=== PATIENT | female | born 1965 | race Caucasian/White ===

== ENCOUNTER 2020-07-21 12:26 | Emergency (ER) | payer MEDICAID ==
[~2020-07-21] VITALS: Ht 170.2 cm; Wt 67.1 kg
[2020-07-21 12:31] VITALS: BP 170/99
[2020-07-21] MEDS ORDERED: KETOROLAC 30 MG/ML VIAL IM ONE (13:20)
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
[2020-07-21] MEDS ORDERED: LIDOCAINE MPF 1% 10 MG/ML VIAL INJ ONE (13:55)
[2020-07-21 14:42] LABS: BASOPHILS # (AUTO) 0.2 K/uL (0.00-0.22); BASOPHILS % (AUTO) 2.5 % (0.0-2.0); EOSINOPHILS # (AUTO) 0.2 K/uL (0-0.4); EOSINOPHILS % (AUTO) 2.5 % (0.0-4.0); HEMATOCRIT 44.4 % (36-48); HEMOGLOBIN 14.8 g/dL (12.0-16.0); LYMPHOCYTES # (AUTO) 2.7 K/uL (2.5-16.5); LYMPHOCYTES % (AUTO) 32.3 % (20.5-51.1); MEAN CORPUSCULAR HEMOGLOBIN 29 pg (27-31); MEAN CORPUSCULAR HGB CONC 33 g/dL (33-37); MONOCYTES # (AUTO) 0.5 K/uL (0.8-1.0); MONOCYTES % (AUTO) 6.4 % (1.7-9.3); NEUTROPHILS # (AUTO) 4.7 K/uL (1.8-7.7); NEUTROPHILS % (AUTO) 56.3 % (42.2-75.2); PLATELET COUNT (AUTO) 393 K/uL (140-450); RED BLOOD CELL COUNT(AUTO) 5.04 MIL/uL (4.20-5.40); RED CELL DISTRIBUTION WIDTH 15.1 % (11.6-13.7); WHITE BLOOD COUNT (AUTO) 8.4 K/uL (4.8-10.8)
[2020-07-21] MEDS ORDERED: BACITRACIN OINT 500 UNITS/GM PKT TP ONE ×2 (15:19→15:20)
[2020-07-21] MEDS ORDERED: cefTRIAXone 1,000 MG in LIDOCAINE MPF 1% 2.1 ML IM ONE (15:20)
[2020-07-21] MEDS ORDERED: IBUP-2213 PO (15:21)
[2020-07-21] MEDS ORDERED: CLIN300C50 PO (15:21)
[2020-07-21 15:24] LABS: ANION GAP 13.7 (8-16); CREATININE 0.9 mg/dL (0.6-1.3); POTASSIUM 3.7 mmol/L (3.5-5.1)
--- NOTE | 2020-07-21 15:27 | NUR ---
APPLIED FINGER SPLINT/DRESSING TO RIGHT 2ND DIGIT WITHOUT ANY ISSUES
[2020-07-21] MEDS ORDERED: cefTRIAXone 1,000 MG VIAL ONE (15:31)
[2020-07-21] MEDS ORDERED: LIDOCAINE MPF 1% 5 ML ONE (15:32)
[2020-07-21 15:38] VITALS: BP 170/99
--- NOTE | 2020-07-21 15:38 | NUR ---
Patient discharged with v/s stable. Written and verbal after care instructions given and explained. Patient alert, oriented and verbalized understanding of instructions. Ambulatory with steady gait. All questions addressed prior to discharge. ID band removed. Patient advised to follow up with PMD. Rx of CLINDAMYCIN, MOTRIN given. Patient educated on indication of medication including possible reaction and side effects. Opportunity to ask questions provided and answered.
== END 2020-07-21 15:38 | disposition home or self-care (01) ==
LOC: MED 12:26
DX: L03.011 Cellulitis of right finger (principal); Z79.899 Other long term (current) drug therapy
CPT/HCPCS: 29130; 36415; 73140; 80048; 85025; 85651; 86140; 87040; 96372; 99284; J0696; J1885; J2001

== ENCOUNTER 2020-07-25 05:13 | Emergency (ER) | payer MEDICAID ==
[~2020-07-25] VITALS: Ht 172.7 cm; Wt 61.2 kg
[~2020-07-25 05:13] MED LIST: CLIN300C50 PO; IBUP-2213 PO
[2020-07-25 05:21] VITALS: BP 120/80
--- NOTE | 2020-07-25 05:21 | NUR ---
TO BED AMBULATORY
--- NOTE | 2020-07-25 05:30 | NUR ---
54 Y/O FEMALE CAME TO THE ED C/O RT HAND PAIN OF 10/10 THAT RADIATES TO ARM AND RT SHOULDER; PT STATES THAT "SHE HIT HER HAND AGAIN IN THE CABINET". DIMA PMH: HTN, PRE-DM, BRONCHITIS
[2020-07-25] MEDS ORDERED: LIDOCAINE MPF 1% 10 MG/ML VIAL INJ ONE (05:40)
[2020-07-25] MEDS ORDERED: KETOROLAC 30 MG/ML VIAL IVP ONE (06:10)
[2020-07-25] MEDS ORDERED: VANCOMYCIN 1,000 MG in DEXTROSE 5% 250 ML IV ONE (06:10)
[2020-07-25] MEDS ORDERED: VANCOMYCIN 1,000 MG VIAL ONE (06:11)
[2020-07-25] MEDS ORDERED: NAPR-54 PO (07:00)
[2020-07-25] MEDS ORDERED: CEPH250C16 PO (07:00)
--- NOTE | 2020-07-25 07:11 | NUR ---
GIVEN REPORT TO HUAN RG FOR CONTINUITY OF CARE
--- NOTE | 2020-07-25 07:21 | NUR ---
Pt report received from Aya RN. Transfer of care at this time.
[2020-07-25 07:48] VITALS: BP 120/80
--- NOTE | 2020-07-25 07:48 | NUR ---
Patient discharged with v/s stable. Written and verbal after care instructions given and explained. Patient alert, oriented and verbalized understanding of instructions. Ambulatory with steady gait. All questions addressed prior to discharge. ID band removed. Patient advised to follow up with PMD. Rx of CEPHALEXIN, NAPROXEN given. Patient educated on indication of medication including possible reaction and side effects. Opportunity to ask questions provided and answered.
--- NOTE | 2020-07-28 17:09 | NUR ---
TALKED TO YENIFER FRIEDMAN, MADE AWARE OF THE RESULT OF HER XR OF HER RIGHT FINGERS, MADE AWARE MD WANTS HER HAND TO HAVE SPLINT, PER YENIFER SHE IS COMING IN AN HOUR.
== END 2020-07-25 07:48 | disposition home or self-care (01) ==
LOC: MED 05:13
DX: S61.309A Unspecified open wound of unspecified finger with damage to nail, initial encounter (principal); L02.512 Cutaneous abscess of left hand; F17.210 Nicotine dependence, cigarettes, uncomplicated; R73.03 Prediabetes; Z79.899 Other long term (current) drug therapy; Z71.6 Tobacco abuse counseling
CPT/HCPCS: 11730; 36415; 73140; 87040; 96365; 96375; 99284; J1885; J2001; J3370; J7060

== ENCOUNTER 2021-07-03 14:49 | Emergency (ER) | payer MEDICAID ==
[~2021-07-03] VITALS: Ht 172.7 cm; Wt 62.6 kg
[~2021-07-03 14:49] MED LIST changes: +CEPH250C16 PO; +NAPR-54 PO
[2021-07-03 15:10] VITALS: BP 104/71
[2021-07-03] MEDS ORDERED: NACL 0.9% 1,000 ML IV ONE (15:30)
[2021-07-03] MEDS ORDERED: KETOROLAC 15 MG/ML VIAL IVP ONE (15:35)
[2021-07-03] MEDS ORDERED: ONDANSETRON 4 MG/2 ML VIAL IVP ONE (15:35)
[2021-07-03 16:02] LABS: BASOPHILS # (AUTO) 0.1 K/uL (0.00-0.22); BASOPHILS % (AUTO) 0.5 % (0.0-2.0); EOSINOPHILS % (AUTO) 0.3 % (0.0-4.0); HEMATOCRIT 42.2 % (36-48); HEMOGLOBIN 14.2 g/dL (12.0-16.0); LYMPHOCYTES % (AUTO) 12.6 % (20.5-51.1); MEAN CORPUSCULAR HEMOGLOBIN 29 pg (27-31); MEAN CORPUSCULAR HGB CONC 34 g/dL (33-37); MEAN CORPUSCULAR VOLUME 87.1 fL (80-94); MONOCYTES # (AUTO) 1.7 K/uL (0.8-1.0); NEUTROPHILS # (AUTO) 11.9 K/uL (1.8-7.7); NEUTROPHILS % (AUTO) 75.6 % (42.2-75.2); PLATELET COUNT (AUTO) 345 K/uL (140-450); RED BLOOD CELL COUNT(AUTO) 4.85 MIL/uL (4.20-5.40); RED CELL DISTRIBUTION WIDTH 15.7 % (11.6-13.7); WHITE BLOOD COUNT (AUTO) 15.7 K/uL (4.8-10.8)
[2021-07-03 16:20] LABS: ALBUMIN 3.4 g/dL (3.4-5.0); ANION GAP 19.2 (8-16); CARBON DIOXIDE 22.4 mmol/L (21-32); CREATININE 1.1 mg/dL (0.6-1.3); POTASSIUM 3.6 mmol/L (3.5-5.1)
--- NOTE | 2021-07-03 16:24 | NUR ---
55 y/o female with c/o generalized malaise. Patient states "symptoms have been going on for a couple of weeks." Patient denies being around anyone who is sick or eating anything new. Medical History: Partial Skull Removal NKDA
--- NOTE | 2021-07-03 16:50 | NUR ---
55/F PRESENTS TO ED WITH C/O BILATERAL NECK AND SHOULDER PAIN, WITH DIZZINESS AND NAUSEA X1 WEEK. PATIENT DENIES RECENT INJURY OR TRAUMA, STATES SHE IS GETTING OVER AN ILLNESS IN THE PAST WEEK AND HAS NOT BEEN EATING OR DRINKING USUAL. PATIENT REPORTS TAKING ALEVE FOR PAIN WITH NO RELIEF. PATIENT DENIES FEVER, CHILLS, HEADACHE, CP, SOB OR OTHER RECENT SICK CONTACTS.
[2021-07-03] MEDS ORDERED: ONDA-188 SL (17:00)
[2021-07-03] MEDS ORDERED: IBUP-2213 PO (17:00)
--- NOTE | 2021-07-03 17:17 | NUR ---
Dr. Peres made aware of patient complaining of pain. Dr. Peres said patient is clear to go home.
--- NOTE | 2021-07-03 17:18 | NUR ---
Patient discharged with v/s stable. Written and verbal after care instructions given. Patient alert, oriented and verbalized understanding of instructions. Ambulatory with steady gait. All questions addressed prior to discharge. ID band removed. Patient advised to follow up with PMD. Rx of Ibuprofen and Zofran given. Opportunity to ask questions provided and answered.
[2021-07-03 17:19] VITALS: BP 92/53
--- NOTE | 2021-07-03 17:20 | NUR ---
The patient's care was reviewed and supervised by Flor Villalobos RN.
== END 2021-07-03 17:19 | disposition home or self-care (01) ==
LOC: MED 14:49
DX: E86.0 Dehydration (principal); B34.9 Viral infection, unspecified; M54.2 Cervicalgia; M25.512 Pain in left shoulder; M25.511 Pain in right shoulder; R42 Dizziness and giddiness; F17.200 Nicotine dependence, unspecified, uncomplicated; Z71.6 Tobacco abuse counseling; Z79.1 Long term (current) use of non-steroidal anti-inflammatories (NSAID); Z79.899 Other long term (current) drug therapy; Z79.2 Long term (current) use of antibiotics
CPT/HCPCS: 36415; 80053; 85025; 96361; 96374; 96375; 99284; J1885; J2405; J7030

== ENCOUNTER 2021-08-14 19:09 | Emergency (ER) | payer MEDICAID ==
[~2021-08-14] VITALS: Ht 172.7 cm; Wt 59.4 kg
[~2021-08-14 19:09] MED LIST changes: +ASPI-1856 PO; +ATOR20TA40 PO; -CEPH250C16 PO; -CLIN300C50 PO; +FURO-570 PO; -IBUP-2213 PO; +LISI5TAB24 PO; -NAPR-54 PO; +PANT40EC56 PO; +POTA10TA70 PO
--- NOTE | 2021-08-14 19:17 | NUR ---
PATIENT AMBULATED TO THE BATHROOM Addendum: 08/14/21 at 1921 by [email or web address] PATIENT REPORTS BEING UNABLE TO URINATE.
[2021-08-14 19:18] VITALS: BP 105/57
--- NOTE | 2021-08-14 19:20 | NUR ---
PATIENT TO LOBBY
[2021-08-14 19:51] LABS: BASOPHILS # (AUTO) 0.1 K/uL (0.00-0.22); BASOPHILS % (AUTO) 0.7 % (0.0-2.0); EOSINOPHILS # (AUTO) 0.1 K/uL (0-0.4); EOSINOPHILS % (AUTO) 1.7 % (0.0-4.0); HEMOGLOBIN 14.4 g/dL (12.0-16.0); LYMPHOCYTES # (AUTO) 1.9 K/uL (2.5-16.5); LYMPHOCYTES % (AUTO) 23.8 % (20.5-51.1); MEAN CORPUSCULAR HEMOGLOBIN 28 pg (27-31); MEAN CORPUSCULAR HGB CONC 33 g/dL (33-37); MEAN CORPUSCULAR VOLUME 86.8 fL (80-94); MONOCYTES # (AUTO) 0.5 K/uL (0.8-1.0); MONOCYTES % (AUTO) 5.9 % (1.7-9.3); NEUTROPHILS # (AUTO) 5.5 K/uL (1.8-7.7); NEUTROPHILS % (AUTO) 67.9 % (42.2-75.2); PLATELET COUNT (AUTO) 450 K/uL (140-450); RED BLOOD CELL COUNT(AUTO) 5.07 MIL/uL (4.20-5.40); RED CELL DISTRIBUTION WIDTH 16.4 % (11.6-13.7); WHITE BLOOD COUNT (AUTO) 8.2 K/uL (4.8-10.8)
--- NOTE | 2021-08-14 20:09 | NUR ---
PT AMBULATED TO BED #3
[2021-08-14 20:12] LABS: ALBUMIN 3.6 g/dL (3.4-5.0); ANION GAP 14.7 (8-16); CARBON DIOXIDE 26.8 mmol/L (21-32); CREATININE 1.2 mg/dL (0.6-1.3); POTASSIUM 3.5 mmol/L (3.5-5.1); TOTAL BILIRUBIN 0.6 mg/dL (0.0-1.0)
--- NOTE | 2021-08-14 21:04 | NUR ---
PT IN RESTING IN BED WITH SIDE RAILS UP X2. PT IS ON BEDSIDE MONITOR. URINE SAMPLE NEEDED, PT AWARE URINE CUP PROVIDED
--- NOTE | 2021-08-14 21:06 | NUR ---
55 Y.O. F BIB SELF ABD PAIN STARTED TODAY. PT WAS RECENTLY ADMITTED HERE AND DISCHARGED YESTERDAY. HAS DIZZINESS AND NAUSEA. PT PAIN WAS A 9/10 IN HER ABDOOMEN. PT COMPALIN OF SOME CHEST PAIN THAT RADIATED FROM HER ABDOMEN. NO COMPLAINTS OF PAIN ANYWHERE ELSE. PT RESTING IN BED. PMH: C-SECTIONS, HIGH CHOLESTEROL NKA
[2021-08-14] MEDS ORDERED: DICYCLOMINE HCL LIQUID 20 MG, ALUMINUM HYD/MAG/SIMETHICONE 30 ML, LIDOCAINE VISCOUS 2% ... PO ONE ×3 (21:10)
[2021-08-14] MEDS ORDERED: DICYCLOMINE HCL LIQUID 10 MG/5 ML UDC ONE (21:14)
[2021-08-14] MEDS ORDERED: ALUMINUM HYD/MAG/SIMETHICONE 30 ML UDC ONE (21:14)
[2021-08-14] MEDS ORDERED: ACET-8386 PO (21:48)
[2021-08-14] MEDS ORDERED: ONDA8TAB87 PO (21:48)
[2021-08-14 21:54] VITALS: BP 105/57
--- NOTE | 2021-08-14 21:54 | NUR ---
Patient discharged with v/s stable. Written and verbal after care instructions given and explained. Patient alert, oriented and verbalized understanding of instructions. Ambulatory with steady gait. All questions addressed prior to discharge. ID band removed. Patient advised to follow up with PMD. Rx of HYROCODONE ONDANSETRON HCI given. Patient educated on indication of medication including possible reaction and side effects. Opportunity to ask questions provided and answered.
--- NOTE | 2021-08-16 11:02 | NUR ---
AUSTEN OUTREACHED TO PATIENTS [phone] TO SCHEDULE FOLLOW UP, PER DR. BOWENS. AUSTEN SPOKE WITH JUVE AND APPT WAS SCHEDULED FOR 08/23/21 AT 1:30 PM W/DR GRAVES AT [address] [facility] [address]. AUSTEN ATTEMPTED REACH OUT TO THE PHONE NUMBER LISTED ON FILE [phone]. PHONE NUMBER BELONGED TO EMERGENCY CONTACT JORGE GAUTHIER. VM INDICATED THAT MESSAGES ARE NOT LISTENED TO HOWEVER, AUSTEN LEFT A MESSAGE REQUESTING A RETURN PHONE CALL.
== END 2021-08-14 21:54 | disposition home or self-care (01) ==
LOC: MED 19:09
DX: R10.13 Epigastric pain (principal); F17.200 Nicotine dependence, unspecified, uncomplicated; Z98.890 Other specified postprocedural states; Z79.899 Other long term (current) drug therapy; Z79.82 Long term (current) use of aspirin
CPT/HCPCS: 36415; 80053; 83690; 85025; 99283

== ENCOUNTER 2022-03-29 14:22 | Inpatient (IN) | payer MEDICAID ==
[~2022-03-29] VITALS: Ht 172.7 cm; Wt 72.6 kg
[~2022-03-29 14:22] MED LIST changes: +ACET-8905 PO; +ONDA8TAB87 PO
[2022-03-29 14:32] VITALS: BP 155/99
--- NOTE | 2022-03-29 14:44 | NUR ---
56 Y/O FEMALE BIB SELF C/O SOBX"A FEW WEEKS", AND BLOATING IN THE STOMACH. DENIES ANY CHEST PAIN, DENIES ANY COUGH. NKA PMH: CHF
--- NOTE | 2022-03-29 15:15 | NUR ---
LAB AT BEDSIDE
[2022-03-29 15:39] LABS: BASOPHILS # (AUTO) 0.1 K/uL (0.00-0.22); BASOPHILS % (AUTO) 0.9 % (0.0-2.0); EOSINOPHILS # (AUTO) 0.1 K/uL (0-0.4); EOSINOPHILS % (AUTO) 0.6 % (0.0-4.0); HEMATOCRIT 47.5 % (36-48); HEMOGLOBIN 14.9 g/dL (12.0-16.0); LYMPHOCYTES # (AUTO) 1.6 K/uL (2.5-16.5); LYMPHOCYTES % (AUTO) 20.3 % (20.5-51.1); MEAN CORPUSCULAR HEMOGLOBIN 27 pg (27-31); MEAN CORPUSCULAR HGB CONC 31 g/dL (33-37); MEAN CORPUSCULAR VOLUME 86.9 fL (80-94); MONOCYTES # (AUTO) 0.7 K/uL (0.8-1.0); MONOCYTES % (AUTO) 8.9 % (1.7-9.3); NEUTROPHILS # (AUTO) 5.5 K/uL (1.8-7.7); NEUTROPHILS % (AUTO) 69.3 % (42.2-75.2); PLATELET COUNT (AUTO) 209 K/uL (140-450); RED BLOOD CELL COUNT(AUTO) 5.46 MIL/uL (4.20-5.40); WHITE BLOOD COUNT (AUTO) 7.9 K/uL (4.8-10.8)
[2022-03-29 15:45] LABS: ALBUMIN 3.1 g/dL (3.4-5.0); ANION GAP 15.2 (8-16); CARBON DIOXIDE 23.6 mmol/L (21-32); POTASSIUM 3.8 mmol/L (3.5-5.1); TOTAL BILIRUBIN 1.1 mg/dL (0.0-1.0)
[2022-03-29] MEDS ORDERED: FUROSEMIDE 40 MG/4 ML VIAL IVP ONE (16:50)
[2022-03-29] MEDS ORDERED: INSULIN LISPRO SLIDING SCALE 100 UNITS/ML VIAL SUBQ PRN (18:00)
[2022-03-29] MEDS ORDERED: ONDANSETRON 4 MG/2 ML VIAL IVP PRN (18:00)
[2022-03-29] MEDS ORDERED: ZOLPIDEM 10 MG TAB PO PRN (18:00)
[2022-03-29] MEDS ORDERED: MAG SULF 2000 MG/WATER PREMIX 50 ML IV PRN (18:00)
[2022-03-29] MEDS ORDERED: POTASSIUM CHLORIDE 10 MEQ TABER PO PRN (18:00)
[2022-03-29] MEDS ORDERED: MORPHINE SULFATE 2 MG/ML SYR IVP PRN (18:00)
[2022-03-29] MEDS ORDERED: ACETAMINOPHEN 325 MG TAB PO PRN (18:00)
[2022-03-29] MEDS ORDERED: LORazepam 2 MG/ML VIAL IVP PRN (18:00)
[2022-03-29] MEDS ORDERED: ALBUTEROL 0.083% 2.5 MG/3 ML NEBU INH PRN (18:00)
[2022-03-29] MEDS ORDERED: DOCUSATE SODIUM 100 MG GELCAP PO PRN (18:00)
[2022-03-29] MEDS ORDERED: DEXTROSE 50% 50 ML SYR IVP PRN (18:00)
--- NOTE | 2022-03-29 19:20 | NUR ---
Pt report given to DARRELL RN. Transfer of care at this time.
--- NOTE | 2022-03-29 19:42 | NUR ---
PATIENT PRESENTS TO ED WITH SHORTNESS OF BREATH. DENIES N/V/D; SKIN IS PINK/WARM/DRY; AAOX4 WITH EVEN AND STEADY GAIT; PT DENIES ANY FEVER, CP, SOB, OR COUGH AT THIS TIME; PATIENT STATES PAIN OF 4/10 AT THIS TIME; VSS; PATIENT POSITIONED FOR COMFORT; HOB ELEVATED; BEDRAILS UP X2; BED DOWN.
--- NOTE | 2022-03-29 19:47 | NUR ---
pt ambulated to the bathroom with a steady gait.
--- NOTE | 2022-03-29 20:01 | NUR ---
Patient will be admitted to care of Val CASTELLANOS. Admited to telemetry. Will go to room 111B. Belongings list completed. Report to Jimmy PRESSLEY.
[2022-03-29 20:45] VITALS: BP 104/64
--- NOTE | 2022-03-29 20:45 | NUR ---
ADMITTED THE PATIENT FROM ER VIA GURNEY. PATIENT A/A/OX4, AMBULATORY. PATIENT DENIES CHEST PAIN, PALPITATIONS, SOB AND DIZZINESS. PATIENT NOT IN ANY DISTRESS. VITAL SIGNS STABLE, AFEBRILE SATING 100% ON RA. SR ON EKG, HR-85. ORIENTED THE PATIENT TO THE ROOM SETTING AND USE OF CALL LIGHT SYSTEM. PATIENT VERBALIZED UNDERSTANDING WITH THE POC. CALL LIGHT WITHIN REACH. WILL CONTINUE POC AND MONITORING.
[2022-03-29] MEDS: BLOOD GLUCOSE MONITORING 1 DEV DEV FS SCH (21:19)
--- NOTE | 2022-03-29 22:00 | NUR ---
NO DUE MEDS AT THIS TIME. BLOOD SUGAR CHECK EARLIER, 102. NO COVERAGE GIVEN AND NEEDED ORDERED. CALL LIGHT WITHIN REACH.
[2022-03-30] VITALS: BP 109/75
--- NOTE | 2022-03-30 | NUR ---
PATIENT VITAL SIGNS STABLE, AFEBRILE, SATING 99% ON RA. SR ON TELE MONITOR, HR-85. NO COMPLAIN OF PAIN AT THIS TIME AND NOT IN ANY DISTRESS.
--- NOTE | 2022-03-30 02:00 | NUR ---
PATIENT ASLEEP AT THIS TIME. VISIBLE CHEST RISE AND FALL NOTED. SAFETY MEASURES IN PLACED.CALL LIGHT WITHIN REACH.
[2022-03-30 04:00] VITALS: BP 102/66
--- NOTE | 2022-03-30 04:00 | NUR ---
VITAL SIGNS STABLE, AFEBRILE, SATING 96% ON RA. NO COMPLAIN AT THIS TIME. NOT IN ANY DISTRESS. SAFETY MEASURES IN PLACED.
--- NOTE | 2022-03-30 06:05 | NUR ---
NO ACUTE EVENT THROUGHOUT THE NIGHT. PATIENT STABLE AND NOT IN ANY DISTRESS. NO COMPLAIN AT THIS TIME. ALL NEEDS ATTENDED. CALL LIGHT WITHIN REACH. WILL ENDORSE THE PATIENT TO THE ONCOMING RN FOR CONTINUITY OF CARE.
[2022-03-30] MEDS: BLOOD GLUCOSE MONITORING 1 DEV DEV FS SCH ×4 (06:16→20:05)
[2022-03-30 06:32] LABS: BASOPHILS # (AUTO) 0.1 K/uL (0.00-0.22); EOSINOPHILS # (AUTO) 0.1 K/uL (0-0.4); EOSINOPHILS % (AUTO) 1.5 % (0.0-4.0); HEMATOCRIT 41.6 % (36-48); HEMOGLOBIN 13.5 g/dL (12.0-16.0); LYMPHOCYTES # (AUTO) 1.7 K/uL (2.5-16.5); LYMPHOCYTES % (AUTO) 23.6 % (20.5-51.1); MEAN CORPUSCULAR HEMOGLOBIN 28 pg (27-31); MEAN CORPUSCULAR HGB CONC 32 g/dL (33-37); MONOCYTES # (AUTO) 0.7 K/uL (0.8-1.0); NEUTROPHILS # (AUTO) 4.6 K/uL (1.8-7.7); NEUTROPHILS % (AUTO) 63.9 % (42.2-75.2); PLATELET COUNT (AUTO) 208 K/uL (140-450); RED CELL DISTRIBUTION WIDTH 17.7 % (11.6-13.7); WHITE BLOOD COUNT (AUTO) 7.2 K/uL (4.8-10.8)
[2022-03-30 06:56] LABS: ANION GAP 15.4 (8-16); CARBON DIOXIDE 26.8 mmol/L (21-32); POTASSIUM 4.2 mmol/L (3.5-5.1)
--- NOTE | 2022-03-30 07:39 | NUR ---
ENDORSED THE PATIENT TO DAY NURSE FOR CONTINUITY OF CARE. PATIENT STABLE AND NOT IN ANY DISTRESS. SIGNING OFF.
[2022-03-30 08:00] VITALS: BP 136/95
[2022-03-30] MEDS ORDERED: FUROSEMIDE 40 MG/4 ML VIAL IVP SCH (09:00)
--- NOTE | 2022-03-30 09:07 | NUR ---
PATIENT HAS BEEN SCREENED AND CATEGORIZED MODERATE NUTRITION RISK. PATIENT WILL BE SEEN WITHIN 3-5 DAYS OF ADMISSION. REVIEWED BY LEILA LR RD
[2022-03-30] MEDS: ASPIRIN 81 MG TAB.CHEW PO SCH (09:45)
[2022-03-30] MEDS: METOPROLOL SUCCINATE 50 MG TABER PO SCH (09:47)
[2022-03-30] MEDS: lisinopriL 5 MG TAB PO SCH (09:48)
[2022-03-30] MEDS: ATORVASTATIN 20 MG TAB PO SCH (09:49)
[2022-03-30 12:00] VITALS: BP 116/79
[2022-03-30] MEDS: SILDENAFIL 20 MG TAB PO SCH ×2 (13:09→20:00)
[2022-03-30 16:00] VITALS: BP 105/61
[2022-03-30] MEDS: FUROSEMIDE 40 MG/4 ML VIAL IVP SCH (16:41)
[2022-03-30 20:21] VITALS: BP 105/70
[2022-03-31 04:45] VITALS: BP 102/70
[2022-03-31] MEDS: SILDENAFIL 20 MG TAB PO SCH ×2 (05:02→14:03)
--- NOTE | 2022-03-31 05:03 | NUR ---
rn notes patient remains on room air, no sob noted. VSS. No pain noted, per patient. BS in the normal range.
[2022-03-31 06:25] LABS: BASOPHILS # (AUTO) 0.1 K/uL (0.00-0.22); BASOPHILS % (AUTO) 0.8 % (0.0-2.0); EOSINOPHILS # (AUTO) 0.2 K/uL (0-0.4); EOSINOPHILS % (AUTO) 1.8 % (0.0-4.0); HEMATOCRIT 37.9 % (36-48); HEMOGLOBIN 12.1 g/dL (12.0-16.0); LYMPHOCYTES # (AUTO) 1.7 K/uL (2.5-16.5); LYMPHOCYTES % (AUTO) 20.8 % (20.5-51.1); MEAN CORPUSCULAR HEMOGLOBIN 27 pg (27-31); MEAN CORPUSCULAR HGB CONC 32 g/dL (33-37); MEAN CORPUSCULAR VOLUME 85.3 fL (80-94); MONOCYTES % (AUTO) 11.4 % (1.7-9.3); NEUTROPHILS # (AUTO) 5.4 K/uL (1.8-7.7); NEUTROPHILS % (AUTO) 65.2 % (42.2-75.2); PLATELET COUNT (AUTO) 206 K/uL (140-450); RED BLOOD CELL COUNT(AUTO) 4.44 MIL/uL (4.20-5.40); RED CELL DISTRIBUTION WIDTH 17.9 % (11.6-13.7); WHITE BLOOD COUNT (AUTO) 8.4 K/uL (4.8-10.8)
[2022-03-31 06:46] LABS: ANION GAP 11.2 (8-16); CREATININE 0.8 mg/dL (0.6-1.3); POTASSIUM 3.2 mmol/L (3.5-5.1)
[2022-03-31] MEDS: BLOOD GLUCOSE MONITORING 1 DEV DEV FS SCH ×2 (06:46→11:30)
[2022-03-31 08:00] VITALS: BP 103/70
[2022-03-31] MEDS: FUROSEMIDE 40 MG/4 ML VIAL IVP SCH (08:30)
[2022-03-31] MEDS: ASPIRIN 81 MG TAB.CHEW PO SCH (08:32)
[2022-03-31] MEDS: METOPROLOL SUCCINATE 50 MG TABER PO SCH (08:33)
[2022-03-31] MEDS: ATORVASTATIN 20 MG TAB PO SCH (08:34)
[2022-03-31] MEDS: lisinopriL 5 MG TAB PO SCH (08:35)
[2022-03-31] MEDS ORDERED: SILD20TA PO (09:31)
[2022-03-31] MEDS ORDERED: ATOR20TA40 PO (09:31)
[2022-03-31] MEDS ORDERED: FURO-570 PO (09:31)
[2022-03-31] MEDS ORDERED: ASPI81CT95 PO (09:31)
[2022-03-31] MEDS ORDERED: METO50TE2 PO (09:31)
[2022-03-31] MEDS ORDERED: LISI5TAB24 PO (09:31)
[2022-03-31 12:00] VITALS: BP 93/59
--- NOTE | 2022-03-31 15:00 | NUR ---
PATIENT DISCHARGED HOME WITH IN PRIVATE VEHICLE AT 14:48. ALL DISCHARGE INSTRUCTIONS AND PAPERWORK SIGNED BY PATIENT AND PATIENT GIVEN HER PAPERWORK FOR DISCHARGE INSTRUCTIONS. REVIEWED PAPERWORK WITH PATIENT. VITALS REMAIN STABLE UPON DISCHARGE, PATIENT WITH NO COMPLAINTS, NO DISTRESS.
== END 2022-03-31 15:06 | disposition home or self-care (01) | DRG 194 ==
LOC: MED 14:22 → MTU 17:59
PROVIDERS: ADMIT Family Medicine; ATTEND Family Medicine
DX: I11.0 Hypertensive heart disease with heart failure (principal); I21.A1 Myocardial infarction type 2; I27.20 Pulmonary hypertension, unspecified; E44.1 Mild protein-calorie malnutrition; I50.23 Acute on chronic systolic (congestive) heart failure; T43.655A Adverse effect of methamphetamines, initial encounter; I42.7 Cardiomyopathy due to drug and external agent; E78.5 Hyperlipidemia, unspecified; F15.10 Other stimulant abuse, uncomplicated; I34.0 Nonrheumatic mitral (valve) insufficiency; I36.1 Nonrheumatic tricuspid (valve) insufficiency; Z20.822 Contact with and (suspected) exposure to COVID-19; Z79.82 Long term (current) use of aspirin; Z79.891 Long term (current) use of opiate analgesic; Z71.6 Tobacco abuse counseling; Z79.899 Other long term (current) drug therapy; Z71.51 Drug abuse counseling and surveillance of drug abuser; Y92.89 Other specified places as the place of occurrence of the external cause; Z68.24 Body mass index [BMI] 24.0-24.9, adult
CPT/HCPCS: 36415; 71045; 80048; 80053; 82948; 83735; 83880; 84484; 85025; 87081; 93005; 94640; 96374; 99285; J1815; J1940; J3475; J7613

== ENCOUNTER 2022-05-05 17:51 | Inpatient (IN) | payer MEDICAID ==
[~2022-05-05] VITALS: Ht 172.7 cm; Wt 65.8 kg
[~2022-05-05 17:51] MED LIST changes: -ACET-8905 PO; -ASPI-1856 PO; +ASPI81CT95 PO; +METO50TE2 PO; -ONDA8TAB87 PO; -PANT40EC56 PO; -POTA10TA70 PO; +SILD20TA PO
[2022-05-05 18:06] VITALS: BP 148/107
[2022-05-05] MEDS ORDERED: FUROSEMIDE 40 MG/4 ML VIAL IVP ONE (18:10)
[2022-05-05] MEDS ORDERED: ASPIRIN 325 MG TAB PO ONE (18:10)
[2022-05-05 18:35] LABS: BASOPHILS # (AUTO) 0.1 K/uL (0.00-0.22); BASOPHILS % (AUTO) 0.8 % (0.0-2.0); EOSINOPHILS # (AUTO) 0.2 K/uL (0-0.4); EOSINOPHILS % (AUTO) 3.1 % (0.0-4.0); HEMATOCRIT 40.9 % (36-48); LYMPHOCYTES % (AUTO) 25.8 % (20.5-51.1); MEAN CORPUSCULAR HEMOGLOBIN 27 pg (27-31); MEAN CORPUSCULAR HGB CONC 32 g/dL (33-37); MEAN CORPUSCULAR VOLUME 83.2 fL (80-94); MONOCYTES # (AUTO) 0.9 K/uL (0.8-1.0); MONOCYTES % (AUTO) 11.3 % (1.7-9.3); NEUTROPHILS # (AUTO) 4.5 K/uL (1.8-7.7); PLATELET COUNT (AUTO) 217 K/uL (140-450); RED BLOOD CELL COUNT(AUTO) 4.92 MIL/uL (4.20-5.40); RED CELL DISTRIBUTION WIDTH 19.3 % (11.6-13.7); WHITE BLOOD COUNT (AUTO) 7.6 K/uL (4.8-10.8)
--- NOTE | 2022-05-05 18:39 | NUR ---
pt in bed 1, already seen by , tachypneic w davis lower leg swelling, distended abd and crackles davis lower lobes, sr on cm, o2 sat 98% at 3 l/m via nc, sr up times2
--- NOTE | 2022-05-05 19:02 | NUR ---
trop 151, aware
[2022-05-05 19:12] LABS: APPEARANCE,URINE CLEAR (CLEAR); BILIRUBIN,URINE NEGATIVE (NEGATIVE); BLOOD, URINE TRACE-I (NEGATIVE); COLOR,URINE YELLOW (YELLOW); LEUKOCYTE ESTERASE ,URINE NEGATIVE (NEGATIVE); NITRITE, URINE POSITIVE (NEGATIVE); UGLUCOSE NEGATIVE (NEGATIVE)
[2022-05-05 19:14] LABS: ALBUMIN 3.2 g/dL (3.4-5.0); ANION GAP 15.5 (8-16); CARBON DIOXIDE 24.2 mmol/L (21-32); CREATININE 0.9 mg/dL (0.6-1.3); POTASSIUM 3.7 mmol/L (3.5-5.1); TOTAL BILIRUBIN 1.1 mg/dL (0.0-1.0)
--- NOTE | 2022-05-05 19:18 | NUR ---
report to shift production supervisor nurse, Al
[2022-05-05 19:30] LABS: BARBITURATE, URINE NEGATIVE ng/ml (NEG <=200); CANNABINOID, URINE POSITIVE ng/mL (NEG <=50)
[2022-05-05 19:32] LABS: BENZODIAZEPINE, URINE NEGATIVE ng/mL (NEG <=200); COCAINE, URINE NEGATIVE ng/mL (NEG <=300); OPIATE, URINE NEGATIVE ng/mL (NEG <=2000); PHENCYCLIDINE SCREEN,URINE NEGATIVE ng/mL (NEG <=25)
[2022-05-05 19:36] LABS: RBC,URINE NONE SEEN /HPF (0-5)
[2022-05-05 19:37] LABS: TRICHOMONAS,URINE None Seen /HPF (None Seen); YEAST,URINE None Seen /HPF (None Seen)
[2022-05-05] MEDS ORDERED: ALBUTEROL 0.083% 2.5 MG/3 ML NEBU INH PRN (19:40)
--- NOTE | 2022-05-05 19:40 | NUR ---
Pt ambulated to and from restroom with min to no assist. Well tolerated. Urine output 300 ml plus post Lasix IV
[2022-05-05] MEDS ORDERED: POTASSIUM CHLORIDE 10 MEQ TABER PO PRN (19:45)
[2022-05-05] MEDS ORDERED: MORPHINE SULFATE 2 MG/ML SYR IVP PRN (19:45)
[2022-05-05] MEDS ORDERED: DOCUSATE SODIUM 100 MG GELCAP PO PRN (19:45)
[2022-05-05] MEDS ORDERED: MAG SULF 2000 MG/WATER PREMIX 50 ML IV PRN (19:45)
[2022-05-05] MEDS ORDERED: LORazepam 2 MG/ML VIAL IVP PRN (19:45)
[2022-05-05] MEDS ORDERED: ZOLPIDEM 10 MG TAB PO PRN (19:45)
[2022-05-05] MEDS ORDERED: ACETAMINOPHEN 325 MG TAB PO PRN (19:45)
[2022-05-05] MEDS ORDERED: ONDANSETRON 4 MG/2 ML VIAL IVP PRN (19:45)
--- NOTE | 2022-05-05 20:55 | NUR ---
Dr. Gore examining patient.
[2022-05-05] MEDS: SILDENAFIL 20 MG TAB PO SCH (21:00)
[2022-05-05] MEDS ORDERED: PIPERACILLIN/TAZOBACTAM 3.375 GM VIAL IV ONE (21:49)
[2022-05-05] MEDS: PIPERACILLIN/TAZOBACTAM 3.375 GM in DEXTROSE 5% 50 ML IV SCH (21:50)
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
[2022-05-05 23:40] VITALS: BP 119/78
--- NOTE | 2022-05-05 23:40 | NUR ---
PATIENT ARRIVED ON [facility] X 2 ED STAFF. PATIENT WAS ABLE TO WALK FOR HALLWAY TO HER BED UNASSISTED. PATIENT ALERT AND ORIENT X 4. PATIENT WAS ABLE TO GIVE HER OWN MEDICAL HISTORY. PATIENT HAS TEETH MISSING AND CORRECTED HER MEDICAL HISTORY THAT WAS COLLECTED IN ED. SHE DENIES ANY PAIN/DISCOMFORT AT THIS TIME. NURSING NOTED WHEEZING ON EXHALATION. BREATH NOTED LABORED NO NOTED COUGH. RESPIRATORY WAS NOTIFIED. SATURATED NOTED AT 91% ON ROOM AIR. PATIENT WAS ORIENTED TO ROOM AND HOSPITAL HOURS AND POLICIES TO VISITING HOURS. SIDE RAILS UP X 2 FOR COMFORT AND ADJUSTMENTS. CALL LIGHT WITH IN REACH FOR ALL NEEDED ASSISTANCE. [email or web address]
--- NOTE | 2022-05-05 23:41 | NUR ---
Patient's Plan of Care was discussed and reviewed with BRANCH OPERATIONS MANAGER: nicole huerta
--- NOTE | 2022-05-05 23:44 | NUR ---
Patient will be admitted to care of Dr. Neal. Admited to Tele. Will go to room 104B. Belongings list completed. Report to Katheryn.
--- NOTE | 2022-05-06 00:53 | NUR ---
PT WAS SEEN AND ASSESSED. PT WAS AWAKE AND ALERT SLEEPING IN BED. PT ON ROOM AIR WITH SPO2 OF 98%. PT DID NO C/O SOB. NO CLEAR BREATH SOUNDS ON AUSCULTATION. NO RESPIRATORY DISTRESS NOTED AT THIS TIME. HHN PRN TX NOT INDICATED AT THIS TIME. WILL CONTINUE TO MONITOR PT.
[2022-05-06] MEDS ORDERED: PIPERACILLIN/TAZOBACTAM 3.375 GM VIAL IV ONE (03:57)
[2022-05-06 04:00] VITALS: BP 136/89
[2022-05-06] MEDS: PIPERACILLIN/TAZOBACTAM 3.375 GM in DEXTROSE 5% 50 ML IV SCH ×3 (04:23→21:13)
--- NOTE | 2022-05-06 04:43 | NUR ---
DURING ROUNDS NURSING NOTED BILATERAL FEET OF PATIENT DISCOLORED. NURSING NOTED EDEMA PITTING 2 WAS ONLY IN THE FEET. BOTH FEET WERE COLD AND CHAPPED AT THE BOTTOM BUT NO NOTED BROKEN SKIN. COVERING RN WAS MADE AWARE AND CHARGE NURSE. [email or web address]
[2022-05-06] MEDS: SILDENAFIL 20 MG TAB PO SCH ×4 (05:00→21:14)
--- NOTE | 2022-05-06 06:59 | NUR ---
ENDORSED PATIENT TO RAHEEL RN, PATIENT WAS STABLE DURING SHIFT CHANGE. INFORMED OF THE MEDICATION NOT AVAILABLE. [email or web address]
[2022-05-06 07:16] LABS: ANION GAP 14.9 (8-16); CARBON DIOXIDE 26.5 mmol/L (21-32); CREATININE 0.9 mg/dL (0.6-1.3); POTASSIUM 3.4 mmol/L (3.5-5.1)
[2022-05-06 07:25] LABS: BASOPHILS # (AUTO) 0.1 K/uL (0.00-0.22); BASOPHILS % (AUTO) 0.8 % (0.0-2.0); EOSINOPHILS # (AUTO) 0.2 K/uL (0-0.4); HEMATOCRIT 40.1 % (36-48); HEMOGLOBIN 12.7 g/dL (12.0-16.0); LYMPHOCYTES # (AUTO) 1.7 K/uL (2.5-16.5); LYMPHOCYTES % (AUTO) 25.5 % (20.5-51.1); MEAN CORPUSCULAR HEMOGLOBIN 26 pg (27-31); MEAN CORPUSCULAR HGB CONC 32 g/dL (33-37); MEAN CORPUSCULAR VOLUME 82.6 fL (80-94); MONOCYTES # (AUTO) 0.8 K/uL (0.8-1.0); MONOCYTES % (AUTO) 11.4 % (1.7-9.3); NEUTROPHILS % (AUTO) 59.3 % (42.2-75.2); PLATELET COUNT (AUTO) 211 K/uL (140-450); RED BLOOD CELL COUNT(AUTO) 4.86 MIL/uL (4.20-5.40); RED CELL DISTRIBUTION WIDTH 19.4 % (11.6-13.7); WHITE BLOOD COUNT (AUTO) 6.8 K/uL (4.8-10.8)
--- NOTE | 2022-05-06 07:35 | NUR ---
pt sound like having sleep apnea v.s done and 02nc applied until pt is ok breathing normal,[email or web address]
[2022-05-06 08:00] VITALS: BP 141/96
--- NOTE | 2022-05-06 08:00 | NUR ---
got report from the night nurse pt sleeping, no sob. [email or web address]
[2022-05-06] MEDS: METOPROLOL SUCCINATE 50 MG TABER PO SCH (08:52)
[2022-05-06] MEDS: FUROSEMIDE 40 MG/4 ML VIAL IVP SCH ×2 (08:52→17:22)
[2022-05-06] MEDS: lisinopriL 5 MG TAB PO SCH (08:53)
[2022-05-06] MEDS: ASPIRIN 81 MG TAB.CHEW PO SCH (08:54)
[2022-05-06] MEDS: ATORVASTATIN 20 MG TAB PO SCH (08:57)
--- NOTE | 2022-05-06 09:23 | NUR ---
PATIENT HAS BEEN SCREENED AND CATEGORIZED MODERATE NUTRITION RISK. PATIENT WILL BE SEEN WITHIN 3-5 DAYS OF ADMISSION. 05/05/22-05/10/[address]
[2022-05-06 12:00] VITALS: BP 97/51
[2022-05-06 16:00] VITALS: BP 102/70
[2022-05-06 20:00] VITALS: BP 94/57
--- NOTE | 2022-05-06 20:00 | NUR ---
PT IS STABLE AND ASLEEP.
--- NOTE | 2022-05-06 22:00 | NUR ---
PT DENIES OF ANY PAIN.
[2022-05-07] VITALS: BP 95/59
--- NOTE | 2022-05-07 00:15 | NUR ---
PT IS SLEEPING WELL.
--- NOTE | 2022-05-07 03:30 | NUR ---
PT IS SLEEPING, NO SOB OR DISTRESS.
[2022-05-07 04:00] VITALS: BP 120/85
[2022-05-07] MEDS: PIPERACILLIN/TAZOBACTAM 3.375 GM in DEXTROSE 5% 50 ML IV SCH (05:15)
[2022-05-07] MEDS: SILDENAFIL 20 MG TAB PO SCH (05:16)
[2022-05-07 05:35] LABS: BASOPHILS # (AUTO) 0.1 K/uL (0.00-0.22); BASOPHILS % (AUTO) 1.2 % (0.0-2.0); EOSINOPHILS # (AUTO) 0.2 K/uL (0-0.4); EOSINOPHILS % (AUTO) 3.3 % (0.0-4.0); HEMATOCRIT 38.5 % (36-48); HEMOGLOBIN 12.3 g/dL (12.0-16.0); LYMPHOCYTES # (AUTO) 1.8 K/uL (2.5-16.5); LYMPHOCYTES % (AUTO) 25.2 % (20.5-51.1); MEAN CORPUSCULAR HEMOGLOBIN 26 pg (27-31); MEAN CORPUSCULAR HGB CONC 32 g/dL (33-37); MEAN CORPUSCULAR VOLUME 81.8 fL (80-94); MONOCYTES # (AUTO) 0.8 K/uL (0.8-1.0); MONOCYTES % (AUTO) 11.6 % (1.7-9.3); NEUTROPHILS # (AUTO) 4.1 K/uL (1.8-7.7); NEUTROPHILS % (AUTO) 58.7 % (42.2-75.2); PLATELET COUNT (AUTO) 200 K/uL (140-450); RED BLOOD CELL COUNT(AUTO) 4.71 MIL/uL (4.20-5.40); RED CELL DISTRIBUTION WIDTH 18.8 % (11.6-13.7)
[2022-05-07 06:19] LABS: ANION GAP 16.5 (8-16); CREATININE 1.1 mg/dL (0.6-1.3); POTASSIUM 3.5 mmol/L (3.5-5.1)
--- NOTE | 2022-05-07 07:37 | NUR ---
GOT REPORT FROM THE NIGHT NURSE, PT SLEEPING NO SOB. [id number]
[2022-05-07 08:00] VITALS: BP 87/49
[2022-05-07] MEDS: FUROSEMIDE 40 MG/4 ML VIAL IVP SCH (09:01)
[2022-05-07] MEDS: lisinopriL 5 MG TAB PO SCH (09:01)
[2022-05-07] MEDS: METOPROLOL SUCCINATE 50 MG TABER PO SCH (09:01)
[2022-05-07] MEDS: ATORVASTATIN 20 MG TAB PO SCH (09:02)
[2022-05-07] MEDS: ASPIRIN 81 MG TAB.CHEW PO SCH (09:05)
--- NOTE | 2022-05-07 09:11 | NUR ---
HOLDING MORNING MED C\O BP 90\50. [email or web address]
[2022-05-07 10:06] VITALS: BP 90/50
--- NOTE | 2022-05-07 12:09 | NUR ---
DISCHARGED PT HOME , DISCHARGE INSTRUCTION GIVEN, IV AND ID BAND REMOVED, PT WALKED OUT.[email or web address]
== END 2022-05-07 11:45 | disposition home or self-care (01) | DRG 720 ==
LOC: MED 17:51 → MTU 19:39
PROVIDERS: ADMIT Family Medicine; ATTEND Family Medicine
DX: A41.9 Sepsis, unspecified organism (principal); I21.A1 Myocardial infarction type 2; I50.23 Acute on chronic systolic (congestive) heart failure; E44.1 Mild protein-calorie malnutrition; I27.20 Pulmonary hypertension, unspecified; E83.51 Hypocalcemia; I42.9 Cardiomyopathy, unspecified; I11.0 Hypertensive heart disease with heart failure; E87.6 Hypokalemia; N39.0 Urinary tract infection, site not specified; E83.42 Hypomagnesemia; Z20.822 Contact with and (suspected) exposure to COVID-19; F15.10 Other stimulant abuse, uncomplicated; R06.03 Acute respiratory distress; Z79.82 Long term (current) use of aspirin; Z79.899 Other long term (current) drug therapy; Z91.14 Patient's other noncompliance with medication regimen; Z71.6 Tobacco abuse counseling; Z71.51 Drug abuse counseling and surveillance of drug abuser
CPT/HCPCS: 36415; 71045; 80048; 80053; 80305; 81001; 83735; 83880; 84484; 85025; 87081; 87086; 93005; 96374; 99285; J1940; J2543; J3475; J7060; Q0092

== ENCOUNTER 2022-05-24 00:15 | Inpatient (IN) | payer MEDICAID ==
[~2022-05-24] VITALS: Ht 172.7 cm; Wt 75.3 kg
--- NOTE | 2022-05-24 00:50 | NUR ---
Dr. Powell examining patient.
[2022-05-24 00:56] VITALS: BP 188/97
--- NOTE | 2022-05-24 01:01 | NUR ---
Patient taken to X-ray via WC.
--- NOTE | 2022-05-24 01:17 | NUR ---
PT TO BED 04.
[2022-05-24 01:41] LABS: BASOPHILS # (AUTO) 0.1 K/uL (0.00-0.22); BASOPHILS % (AUTO) 1.1 % (0.0-2.0); EOSINOPHILS # (AUTO) 0.2 K/uL (0-0.4); EOSINOPHILS % (AUTO) 2.1 % (0.0-4.0); HEMATOCRIT 41.3 % (36-48); HEMOGLOBIN 13.1 g/dL (12.0-16.0); LYMPHOCYTES # (AUTO) 1.4 K/uL (2.5-16.5); LYMPHOCYTES % (AUTO) 18.5 % (20.5-51.1); MEAN CORPUSCULAR HEMOGLOBIN 26 pg (27-31); MEAN CORPUSCULAR HGB CONC 32 g/dL (33-37); MEAN CORPUSCULAR VOLUME 83.2 fL (80-94); MONOCYTES # (AUTO) 0.7 K/uL (0.8-1.0); NEUTROPHILS # (AUTO) 5.4 K/uL (1.8-7.7); NEUTROPHILS % (AUTO) 69.3 % (42.2-75.2); PLATELET COUNT (AUTO) 196 K/uL (140-450); RED BLOOD CELL COUNT(AUTO) 4.97 MIL/uL (4.20-5.40); RED CELL DISTRIBUTION WIDTH 20.6 % (11.6-13.7); WHITE BLOOD COUNT (AUTO) 7.8 K/uL (4.8-10.8)
--- NOTE | 2022-05-24 01:53 | NUR ---
56yo F here for generalized body pain and swelling. Awake alert and oriented x 4. Pt was discharged from hospital x 2 weeks ago. Having worsening swelling since discharge. Admits to chest pain and shortness of breath. 5/10 midsternal chest pain now. Diminshed breath sounds to bilat lower lung [place]. Tachypnea to 30 bpm. 3+ edema to BLE.
[2022-05-24 01:58] LABS: ALBUMIN 3.3 g/dL (3.4-5.0); ANION GAP 13.9 (8-16); CARBON DIOXIDE 24.7 mmol/L (21-32); POTASSIUM 3.6 mmol/L (3.5-5.1); TOTAL BILIRUBIN 1.9 mg/dL (0.0-1.0)
[2022-05-24] MEDS ORDERED: ASPIRIN 325 MG TAB PO ONE (02:05)
[2022-05-24 02:14] LABS: APPEARANCE,URINE SL CLOUDY (CLEAR); BILIRUBIN,URINE 2+ (NEGATIVE); BLOOD, URINE NEGATIVE (NEGATIVE); COLOR,URINE YELLOW (YELLOW); LEUKOCYTE ESTERASE ,URINE NEGATIVE (NEGATIVE); NITRITE, URINE POSITIVE (NEGATIVE); UGLUCOSE TRACE (NEGATIVE)
[2022-05-24 02:22] LABS: WBC,URINE 0-5 /HPF (0-5)
[2022-05-24 02:23] LABS: BARBITURATE, URINE NEGATIVE ng/ml (NEG <=200); BENZODIAZEPINE, URINE NEGATIVE ng/mL (NEG <=200); CANNABINOID, URINE POSITIVE ng/mL (NEG <=50); COCAINE, URINE NEGATIVE ng/mL (NEG <=300); OPIATE, URINE NEGATIVE ng/mL (NEG <=2000); PHENCYCLIDINE SCREEN,URINE NEGATIVE ng/mL (NEG <=25)
[2022-05-24] MEDS ORDERED: cefTRIAXone 1,000 MG VIAL ONE (02:28)
[2022-05-24] MEDS ORDERED: AZITHROMYCIN 1,000 MG in DEXTROSE 5% 500 ML IV ONE (02:30)
--- NOTE | 2022-05-24 03:09 | NUR ---
Pt does not know the name of her home meds. Unable to do med reconciliation
[2022-05-24] MEDS ORDERED: AZITHROMYCIN 500 MG INJ VIAL IV ONE (03:13)
--- NOTE | 2022-05-24 03:35 | NUR ---
Ultrasound at bedside.
--- NOTE | 2022-05-24 03:35 | NUR ---
Ultrasound at bedside
[2022-05-24] MEDS ORDERED: FUROSEMIDE 20 MG/2 ML VIAL IVP ONE (03:50)
[2022-05-24] MEDS ORDERED: MORPHINE SULFATE 2 MG/ML SYR IVP PRN (03:50)
[2022-05-24] MEDS ORDERED: MORPHINE SULFATE 4 MG/ML SYR IVP ONE (03:50)
--- NOTE | 2022-05-24 03:57 | NUR ---
Complaining of 10/10 abdominal pain. Pt unable to tolerate and finish the ultrasound. Morphine 4mg IV given. Ultrasound will return later to try again
--- NOTE | 2022-05-24 06:00 | NUR ---
Pt sleeping now. VS stable. No distress
--- NOTE | 2022-05-24 06:32 | NUR ---
Lactic acid 2.8. Texted to Dr De Leon
[2022-05-24] MEDS ORDERED: ZOLPIDEM 10 MG TAB PO PRN (07:20)
[2022-05-24] MEDS ORDERED: VANCOMYCIN PER PHARMACY MC PRN (07:20)
[2022-05-24] MEDS ORDERED: MAG SULF 2000 MG/WATER PREMIX 50 ML IV PRN (07:20)
[2022-05-24] MEDS ORDERED: ACETAMINOPHEN 325 MG TAB PO PRN (07:20)
[2022-05-24] MEDS ORDERED: DOCUSATE SODIUM 100 MG GELCAP PO PRN (07:20)
[2022-05-24] MEDS ORDERED: ONDANSETRON 4 MG/2 ML VIAL IVP PRN (07:20)
[2022-05-24] MEDS ORDERED: LORazepam 2 MG/ML VIAL IVP PRN (07:20)
--- NOTE | 2022-05-24 07:23 | NUR ---
Report recieved from HUAN Palacios for transfer of care.
--- NOTE | 2022-05-24 07:26 | NUR ---
Per patient, she does not take any medication at home. Med rec complete.
--- NOTE | 2022-05-24 07:41 | NUR ---
Patient was offered breakfast tray.
--- NOTE | 2022-05-24 08:04 | NUR ---
Dr. Neal, admitting doctor, evaluating patient at bedside.
--- NOTE | 2022-05-24 08:52 | NUR ---
PT MOVED TO ER BED 6
--- NOTE | 2022-05-24 09:14 | NUR ---
PATIENT HAS BEEN SCREENED AND CATEGORIZED MODERATE NUTRITION RISK. PATIENT WILL BE SEEN WITHIN 3-5 DAYS OF ADMISSION. REVIEWED BY LEILA LR RD
[2022-05-24] MEDS ORDERED: VANCOMYCIN 1,000 MG VIAL ONE (09:40)
[2022-05-24] MEDS: VANCOMYCIN 1,000 MG in DEXTROSE 5% 250 ML IV SCH ×2 (09:54→09:55)
[2022-05-24] MEDS: FUROSEMIDE 40 MG/4 ML VIAL IVP SCH (09:54)
--- NOTE | 2022-05-24 09:58 | NUR ---
PT REPORTS FEELING SOB WITH AUDIBLE WHEEZING. SPO2 100% AND RR 17. HEAD OF BED ELEVATED. RT CALLED FOR PRN BREATHING TREATMENT.
[2022-05-24] MEDS: ALBUTEROL 0.083% 2.5 MG/3 ML NEBU INH PRN ×2 (10:04→10:05)
--- NOTE | 2022-05-24 10:11 | NUR ---
RT AT BEDSIDE FOR BREATHING TREATMENT
[2022-05-24] MEDS ORDERED: CRUSHER, PILL MC ONE (10:21)
[2022-05-24] MEDS: ATORVASTATIN 20 MG TAB PO SCH (10:25)
[2022-05-24] MEDS: lisinopriL 5 MG TAB PO SCH (10:25)
[2022-05-24] MEDS: METOPROLOL SUCCINATE 50 MG TABER PO SCH (10:26)
[2022-05-24] MEDS ORDERED: PIPERACILLIN/TAZOBACTAM 3.375 GM VIAL IV ONE ×2 (12:24→18:20)
--- NOTE | 2022-05-24 12:28 | NUR ---
Patient was offered lunch tray.
[2022-05-24] MEDS: PIPERACILLIN/TAZOBACTAM 3.375 GM in DEXTROSE 5% 50 ML IV SCH ×2 (12:42→18:00)
[2022-05-24] MEDS: SILDENAFIL 20 MG TAB PO SCH ×2 (12:54→21:07)
--- NOTE | 2022-05-24 14:22 | NUR ---
Patient is laying in bed, respirations even and unlabored. All needs met by staff.
--- NOTE | 2022-05-24 15:12 | NUR ---
Patient ambulated to restroom with steady gait.
--- NOTE | 2022-05-24 17:57 | NUR ---
Patient was offered dinner tray.
--- NOTE | 2022-05-24 18:35 | NUR ---
Patient ambulated to restroom with steady gait.
--- NOTE | 2022-05-24 19:27 | NUR ---
Report given to HUAN Orosco for transfer of care.
--- NOTE | 2022-05-24 20:00 | NUR ---
RECEIVED PT IN [facility] AOX4. DENIES PAIN AT THIS TIME. PENDING TELE BED. NAD. SAFETY MAITNAINED.
--- NOTE | 2022-05-24 22:45 | NUR ---
PT ASLEEP NO S/S PAIN OR DISCOMFORT. NAD. SAFETY MAINTAINED.
[2022-05-25] MEDS: PIPERACILLIN/TAZOBACTAM 3.375 GM in DEXTROSE 5% 50 ML IV SCH ×4 (00:12→18:00)
--- NOTE | 2022-05-25 04:19 | NUR ---
Patient appears to be resting comfortably in bed with eyes closed. Vital Signs within normal limits. Respirations even and unlabored. Safety measures are in placed and attached to pen rider.
[2022-05-25] MEDS: SILDENAFIL 20 MG TAB PO SCH ×3 (05:00→21:00)
[2022-05-25 05:30] LABS: BASOPHILS # (AUTO) 0.1 K/uL (0.00-0.22); BASOPHILS % (AUTO) 0.9 % (0.0-2.0); EOSINOPHILS # (AUTO) 0.2 K/uL (0-0.4); EOSINOPHILS % (AUTO) 2.6 % (0.0-4.0); HEMATOCRIT 36.8 % (36-48); HEMOGLOBIN 11.7 g/dL (12.0-16.0); LYMPHOCYTES # (AUTO) 2.2 K/uL (2.5-16.5); LYMPHOCYTES % (AUTO) 29.8 % (20.5-51.1); MEAN CORPUSCULAR HEMOGLOBIN 26 pg (27-31); MEAN CORPUSCULAR HGB CONC 32 g/dL (33-37); MEAN CORPUSCULAR VOLUME 82.5 fL (80-94); MONOCYTES # (AUTO) 0.9 K/uL (0.8-1.0); MONOCYTES % (AUTO) 12.3 % (1.7-9.3); NEUTROPHILS # (AUTO) 4.1 K/uL (1.8-7.7); NEUTROPHILS % (AUTO) 54.4 % (42.2-75.2); PLATELET COUNT (AUTO) 192 K/uL (140-450); RED BLOOD CELL COUNT(AUTO) 4.46 MIL/uL (4.20-5.40); RED CELL DISTRIBUTION WIDTH 20.4 % (11.6-13.7); WHITE BLOOD COUNT (AUTO) 7.4 K/uL (4.8-10.8)
[2022-05-25] MEDS ORDERED: PIPERACILLIN/TAZOBACTAM 3.375 GM VIAL IV ONE ×3 (06:11→20:51)
[2022-05-25 06:25] LABS: ANION GAP 12.6 (8-16); CARBON DIOXIDE 25.9 mmol/L (21-32); CREATININE 1.1 mg/dL (0.6-1.3); POTASSIUM 3.5 mmol/L (3.5-5.1)
--- NOTE | 2022-05-25 07:16 | NUR ---
Pt report given to Kalyani RAJAN. Transfer of care at this time.
--- NOTE | 2022-05-25 07:20 | NUR ---
Recieved report from HUAN You for transfer of care.
--- NOTE | 2022-05-25 07:30 | NUR ---
Patient was offered breakfast tray.
[2022-05-25] MEDS ORDERED: SILDENAFIL 20 MG TAB PO SCH (08:37)
--- NOTE | 2022-05-25 08:48 | NUR ---
Patient ambulated to restroom with steady gait.
--- NOTE | 2022-05-25 09:01 | NUR ---
Dr. Neal, admitting doctor, evaluating patient at bedside.
[2022-05-25] MEDS ORDERED: VANCOMYCIN 1,000 MG VIAL ONE (09:36)
[2022-05-25] MEDS: ASPIRIN 81 MG TAB.CHEW PO SCH (09:46)
[2022-05-25] MEDS: lisinopriL 5 MG TAB PO SCH (09:46)
[2022-05-25] MEDS ORDERED: CRUSHER, PILL MC ONE (09:47)
[2022-05-25] MEDS: METOPROLOL SUCCINATE 50 MG TABER PO SCH (09:48)
[2022-05-25] MEDS: ATORVASTATIN 20 MG TAB PO SCH (09:49)
[2022-05-25] MEDS: FUROSEMIDE 40 MG/4 ML VIAL IVP SCH (10:08)
--- NOTE | 2022-05-25 10:10 | NUR ---
20G right hand flushed with 0.9% NS, patient c/o stinging sensation. IV discontinued; new IV to be placed.
--- NOTE | 2022-05-25 10:11 | NUR ---
Contacted Dr. Neal advising of patient BP 108/75; per MD to hold 0900 Lasix 40mg IVP.
--- NOTE | 2022-05-25 10:20 | NUR ---
Pt c/o increased SOB after ambulating to restroom. SpO2 86% on room air RR 28. Pt placed onto 2L via NC SpO2 98% at this time.
[2022-05-25] MEDS: VANCOMYCIN 1,000 MG in DEXTROSE 5% 250 ML IV SCH (10:23)
[2022-05-25] MEDS: ALBUTEROL 0.083% 2.5 MG/3 ML NEBU INH PRN ×2 (10:53→18:07)
--- NOTE | 2022-05-25 12:18 | NUR ---
Patient was offered her lunch tray.
--- NOTE | 2022-05-25 12:25 | NUR ---
Ultrasound at bedside.
--- NOTE | 2022-05-25 13:15 | NUR ---
Patient is sleeping on bed, all needs met by staff.
--- NOTE | 2022-05-25 17:43 | NUR ---
Patient is audibly wheezing and feeling SOB. RT called for PRN breathing treatment.
--- NOTE | 2022-05-25 18:23 | NUR ---
Patient offered dinner tray. Patient is sitting up eating dinner.
--- NOTE | 2022-05-25 20:00 | NUR ---
The patient's care was reviewed and supervised by Kan Jaime RN.
--- NOTE | 2022-05-25 20:01 | NUR ---
Patient will be admitted to care of Dr. Neal. Admited to Telemetry. Will go to room 119A. Belongings list completed. Report to HUAN Ludwig.
--- NOTE | 2022-05-25 20:01 | NUR ---
Note maury in EDM - 05/25/22 at 2009 by BILL Patient will be admitted to care of Dr. Neal. Admited to Telemetry. Will go to room 119A. Belongings list completed. Report to HUAN.
--- NOTE | 2022-05-25 20:06 | NUR ---
NURSE REPORT REPORT OBTAINED FROM ER NURSE PALMA AT 2000, AND REPORT GIVEN AT BEDSIDE. THIS NURSE NOTICE THAT THE 1800 DOSE OF ANTIBIOTIC ZOSYN NOT GIVEN AND THIS NURSE NEEDS TO HANG THAT DOSE. VS TAKEN- 98.2-71-18, BP 108/68, O2 SAT 100% RA. NO C/O PAIN OR DISCOMFORT.
[2022-05-25 22:00] VITALS: BP 108/68
[2022-05-26] MEDS ORDERED: PIPERACILLIN/TAZOBACTAM 3.375 GM VIAL IV ONE ×2 (00:52→05:38)
[2022-05-26] MEDS: PIPERACILLIN/TAZOBACTAM 3.375 GM in DEXTROSE 5% 50 ML IV SCH ×5 (01:00→23:29)
[2022-05-26 04:00] VITALS: BP 99/70
[2022-05-26] MEDS: SILDENAFIL 20 MG TAB PO SCH ×3 (05:00→22:15)
--- NOTE | 2022-05-26 07:15 | NUR ---
RECEIVED REPORT FROM RIG SITE ENGINEER NURSE FOR CONTINUITY OF CARE. PT STABLE AT THIS TIME.
--- NOTE | 2022-05-26 07:16 | NUR ---
NURSE REPORT REPORT GIVEN TO DAYSMDFT NURSE KEISHA TO ASSUME CARE OF PATIENT. ALL QUESTIONS ANSWERED. MIRTHA MILLS RN
[2022-05-26 08:00] VITALS: BP 97/74
[2022-05-26 08:39] LABS: ANION GAP 15.1 (8-16); CARBON DIOXIDE 23.3 mmol/L (21-32); CREATININE 1.1 mg/dL (0.6-1.3); POTASSIUM 3.4 mmol/L (3.5-5.1)
[2022-05-26] MEDS: METOPROLOL SUCCINATE 50 MG TABER PO SCH (09:00)
[2022-05-26] MEDS: lisinopriL 5 MG TAB PO SCH (09:00)
[2022-05-26 09:06] LABS: BASOPHILS # (AUTO) 0.1 K/uL (0.00-0.22); BASOPHILS % (AUTO) 1.2 % (0.0-2.0); EOSINOPHILS # (AUTO) 0.1 K/uL (0-0.4); EOSINOPHILS % (AUTO) 2.1 % (0.0-4.0); HEMOGLOBIN 12.3 g/dL (12.0-16.0); LYMPHOCYTES # (AUTO) 1.6 K/uL (2.5-16.5); LYMPHOCYTES % (AUTO) 22.5 % (20.5-51.1); MEAN CORPUSCULAR HEMOGLOBIN 26 pg (27-31); MEAN CORPUSCULAR HGB CONC 32 g/dL (33-37); MEAN CORPUSCULAR VOLUME 82.5 fL (80-94); MONOCYTES # (AUTO) 0.8 K/uL (0.8-1.0); NEUTROPHILS # (AUTO) 4.4 K/uL (1.8-7.7); NEUTROPHILS % (AUTO) 63.2 % (42.2-75.2); PLATELET COUNT (AUTO) 191 K/uL (140-450); RED BLOOD CELL COUNT(AUTO) 4.73 MIL/uL (4.20-5.40); RED CELL DISTRIBUTION WIDTH 20.6 % (11.6-13.7); WHITE BLOOD COUNT (AUTO) 6.9 K/uL (4.8-10.8)
[2022-05-26] MEDS: ASPIRIN 81 MG TAB.CHEW PO SCH (09:57)
[2022-05-26] MEDS: FUROSEMIDE 40 MG/4 ML VIAL IVP SCH ×2 (09:57→17:46)
[2022-05-26] MEDS: ATORVASTATIN 20 MG TAB PO SCH (09:58)
[2022-05-26] MEDS ORDERED: VANCOMYCIN HCL 1.25 GM in DEXTROSE 5% 250 ML IV SCH (11:00)
[2022-05-26] MEDS: VANCOMYCIN 1.25GM PREMIX 250 ML IV SCH (11:00)
[2022-05-26 12:00] VITALS: BP 92/67
[2022-05-26] MEDS: POTASSIUM CHLORIDE 10 MEQ TABER PO PRN (12:42)
[2022-05-26] MEDS: ALBUTEROL 0.083% 2.5 MG/3 ML NEBU INH PRN (15:53)
[2022-05-26 16:00] VITALS: BP 105/89
[2022-05-26 20:00] VITALS: BP 115/88
--- NOTE | 2022-05-26 20:01 | NUR ---
ENDORSED PT TO STRINGED INSTRUMENT REPAIRER NURSE FOR CONTINUITY OF CARE. PT IS STABLE
[2022-05-27 06:23] LABS: BASOPHILS # (AUTO) 0.2 K/uL (0.00-0.22); BASOPHILS % (AUTO) 3.4 % (0.0-2.0); EOSINOPHILS # (AUTO) 0.1 K/uL (0-0.4); HEMOGLOBIN 11.8 g/dL (12.0-16.0); LYMPHOCYTES # (AUTO) 1.3 K/uL (2.5-16.5); MEAN CORPUSCULAR HEMOGLOBIN 26 pg (27-31); MEAN CORPUSCULAR HGB CONC 32 g/dL (33-37); MEAN CORPUSCULAR VOLUME 82.3 fL (80-94); MONOCYTES # (AUTO) 0.9 K/uL (0.8-1.0); NEUTROPHILS # (AUTO) 4.4 K/uL (1.8-7.7); NEUTROPHILS % (AUTO) 63.4 % (42.2-75.2); PLATELET COUNT (AUTO) 187 K/uL (140-450); RED BLOOD CELL COUNT(AUTO) 4.49 MIL/uL (4.20-5.40); RED CELL DISTRIBUTION WIDTH 20.4 % (11.6-13.7); WHITE BLOOD COUNT (AUTO) 6.9 K/uL (4.8-10.8)
[2022-05-27] MEDS: SILDENAFIL 20 MG TAB PO SCH ×3 (06:34→20:36)
[2022-05-27 06:35] LABS: ANION GAP 12.8 (8-16); CARBON DIOXIDE 27.3 mmol/L (21-32); CREATININE 1.1 mg/dL (0.6-1.3); POTASSIUM 3.1 mmol/L (3.5-5.1)
[2022-05-27] MEDS: PIPERACILLIN/TAZOBACTAM 3.375 GM in DEXTROSE 5% 50 ML IV SCH ×3 (06:35→17:51)
[2022-05-27] MEDS: ALBUTEROL 0.083% 2.5 MG/3 ML NEBU INH PRN (07:05)
--- NOTE | 2022-05-27 07:20 | NUR ---
RECEIVED REPORT FROM LEAD SYSTEMS ARCHITECT NURSE FOR CONTINUITY OF CARE. PT STABLE AT THIS TIME.
[2022-05-27 07:31] LABS: LYMPHOCYTES % (AUTO) 18.8 % (20.5-51.1); MONOCYTES % (AUTO) 12.4 % (1.7-9.3)
[2022-05-27 08:00] VITALS: BP 130/84
[2022-05-27] MEDS: FUROSEMIDE 40 MG/4 ML VIAL IVP SCH ×2 (10:14→17:00)
[2022-05-27] MEDS: METOPROLOL SUCCINATE 50 MG TABER PO SCH (10:15)
[2022-05-27] MEDS: lisinopriL 5 MG TAB PO SCH (10:16)
[2022-05-27] MEDS: ASPIRIN 81 MG TAB.CHEW PO SCH (10:16)
[2022-05-27] MEDS: POTASSIUM CHLORIDE 10 MEQ TABER PO PRN (10:17)
[2022-05-27] MEDS: ATORVASTATIN 20 MG TAB PO SCH (10:17)
[2022-05-27] MEDS: VANCOMYCIN 1.25GM PREMIX 250 ML IV SCH (11:00)
[2022-05-27 12:00] VITALS: BP 91/57
[2022-05-27 16:00] VITALS: BP 95/53
[2022-05-27] MEDS: MORPHINE SULFATE 2 MG/ML SYR IVP PRN (18:48)
--- NOTE | 2022-05-27 19:15 | NUR ---
ENDORSED PT TO PICK AND SHOVEL MAN NURSE FOR CONTINUITY OF CARE. PT IS STABLE
--- NOTE | 2022-05-27 19:16 | NUR ---
RECEIVED REPORT FROM DAY SHIFT NURSE SHENG FOR CONTINUITY OF CARE. PT AWAKE IN BED. RESPIRATIONS EVEN AND UNLABORED ON RA. NO COMPLAINTS OF PAIN. IV SITE ON LEFT HAND INFUSING ABX. INITIAL ASSESSMENT DONE. POC DISCUSSED WITH PT AND HUAN SHANNON. CALL LIGHT WITHIN REACH. SAFETY PRECAUTIONS IN PLACE.
[2022-05-27 20:00] VITALS: BP 119/68
--- NOTE | 2022-05-27 20:36 | NUR ---
ADMINISTERED DUE MED. V/S WITHIN NORMAL LIMITS.
[2022-05-28] VITALS: BP 102/56
[2022-05-28] MEDS: PIPERACILLIN/TAZOBACTAM 3.375 GM in DEXTROSE 5% 50 ML IV SCH ×2 (00:17→06:34)
[2022-05-28 04:00] VITALS: BP 115/75
--- NOTE | 2022-05-28 04:20 | NUR ---
PT WAS COMPLAINING OF SOB. DIDN'T WANT NASAL CANULA ON. PER PT, THE MORE THAT SHE CAN'T BREATHE WHEN HAVING NASAL CANULA ON. V/S WERE TAKEN. 115/75, 75, 98.0, 18, 91%. CALLED RT. PT ALSO COMPLAINED OF GENERALIZED PAIN 11/08. HUAN SHANNON WAS INFORMED.
[2022-05-28] MEDS: MORPHINE SULFATE 2 MG/ML SYR IVP PRN (04:22)
[2022-05-28] MEDS: ALBUTEROL 0.083% 2.5 MG/3 ML NEBU INH PRN ×2 (04:44→13:32)
--- NOTE | 2022-05-28 04:44 | NUR ---
RT AT BEDSIDE GIVING PT BREATHING TREATMENT.
[2022-05-28] MEDS: SILDENAFIL 20 MG TAB PO SCH ×2 (05:43→13:00)
--- NOTE | 2022-05-28 05:43 | NUR ---
ADMINISTERED DUE MED. V/S 121/75, 89, 97%.
[2022-05-28 05:55] LABS: BASOPHILS # (AUTO) 0.1 K/uL (0.00-0.22); BASOPHILS % (AUTO) 0.7 % (0.0-2.0); EOSINOPHILS # (AUTO) 0.2 K/uL (0-0.4); EOSINOPHILS % (AUTO) 2.1 % (0.0-4.0); HEMATOCRIT 37.8 % (36-48); HEMOGLOBIN 12.1 g/dL (12.0-16.0); LYMPHOCYTES # (AUTO) 1.5 K/uL (2.5-16.5); LYMPHOCYTES % (AUTO) 16.8 % (20.5-51.1); MEAN CORPUSCULAR HEMOGLOBIN 26 pg (27-31); MEAN CORPUSCULAR HGB CONC 32 g/dL (33-37); MEAN CORPUSCULAR VOLUME 82.5 fL (80-94); MONOCYTES % (AUTO) 11.3 % (1.7-9.3); NEUTROPHILS % (AUTO) 69.1 % (42.2-75.2); PLATELET COUNT (AUTO) 205 K/uL (140-450); RED BLOOD CELL COUNT(AUTO) 4.58 MIL/uL (4.20-5.40); RED CELL DISTRIBUTION WIDTH 20.6 % (11.6-13.7); WHITE BLOOD COUNT (AUTO) 8.7 K/uL (4.8-10.8)
[2022-05-28 06:17] LABS: ANION GAP 12.9 (8-16); CARBON DIOXIDE 26.6 mmol/L (21-32); POTASSIUM 3.5 mmol/L (3.5-5.1)
--- NOTE | 2022-05-28 07:00 | NUR ---
RECEIVED PT FROM PHYSICIAN ANESTHESIOLOGIST NURSE FOR CONTINUITY OF CARE. PT IN BED. AOX4, ABLE TO VERBALIZE NEEDS. RESPIRATIONS EVEN AND UNLABORED. SKIN WARM AND DRY TO TOUCH. NO DISTRESS NOTED. CALL LIGHT WITHIN REACH. ALL SAFETY PRECAUTIONS IN PLACE.
[2022-05-28 08:00] VITALS: BP 114/60
[2022-05-28] MEDS: ASPIRIN 81 MG TAB.CHEW PO SCH (08:27)
[2022-05-28] MEDS: METOPROLOL SUCCINATE 50 MG TABER PO SCH (08:28)
[2022-05-28] MEDS: lisinopriL 5 MG TAB PO SCH (08:28)
[2022-05-28] MEDS: ATORVASTATIN 20 MG TAB PO SCH (08:28)
--- NOTE | 2022-05-28 08:35 | NUR ---
ADMINISTERED ALL SCHEDULED MEDS. PT SITTING UP ON BED TOLERATING WELL.
[2022-05-28] MEDS: FUROSEMIDE 40 MG/4 ML VIAL IVP SCH (09:00)
[2022-05-28] MEDS: VANCOMYCIN 1.25GM PREMIX 250 ML IV SCH (11:08)
[2022-05-28] MEDS ORDERED: ASPI81CT95 PO (11:16)
[2022-05-28] MEDS ORDERED: METO50TE2 PO (11:16)
[2022-05-28] MEDS ORDERED: SILD20TA PO (11:16)
[2022-05-28] MEDS ORDERED: LISI5TAB24 PO (11:16)
[2022-05-28] MEDS ORDERED: FURO-570 PO (11:16)
[2022-05-28] MEDS ORDERED: ATOR20TA40 PO (11:16)
[2022-05-28 11:59] VITALS: BP 114/60
[2022-05-28 12:00] VITALS: BP 113/73
[2022-05-28] MEDS ORDERED: ALBU0.0912 INH (12:04)
--- NOTE | 2022-05-28 12:58 | NUR ---
DISCUSSED DC PACKET WITH PT, PT VERBALIZED UNDERSTANDING. PT CRYING, STATES HER WONT ANSWER HER PHONE CALL.
--- NOTE | 2022-05-28 13:19 | NUR ---
SCHEDULED MED DUE, PT REFUSED MEDICATION STATES "IM TOO UPSET I DONT WANT TO TAKE IT" PT CONTINUES CALLING PHONE CRYING.
--- NOTE | 2022-05-28 14:11 | NUR ---
05/28/22 RD INITIAL ASSESSMENT COMPLETED PLEASE REFER TO NUTRITION ASSESSMENT UNDER CARE ACTIVITY FOR ESTIMATED NUTRITIONAL NEEDS. 1. CONTINUE CARDIAC DIET TOLERATED 2. PROVIDED NUTRITION EDUCATION AND HANDOUTS FOR CHF 3. RD TO FOLLOW-UP 7 DAYS, LOW RISK REVIEWED BY LEILA LR RD
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
--- NOTE | 2022-05-29 13:29 | NUR ---
DELFINA MUNSON: CALLED [facility] AND SPOKE WITH SATINDER PT HAS A APPOINTMENT 06/06/2022 AT 0900 LOCATED AT [address] [facility] [id number] ELY LR. PT AND ARE AWARE OF THE ABOVE INFORMATION.
== END 2022-05-28 15:00 | disposition home or self-care (01) | DRG 720 ==
LOC: MED 00:15 → MTU 03:51 → INTOOBSV 03:51 → OBSVTOIN 03:51 → MTU 18:57
PROVIDERS: ADMIT Family Medicine; ATTEND Family Medicine
DX: A41.9 Sepsis, unspecified organism (principal); J96.00 Acute respiratory failure, unspecified whether with hypoxia or hypercapnia; I21.4 Non-ST elevation (NSTEMI) myocardial infarction; I50.43 Acute on chronic combined systolic (congestive) and diastolic (congestive) heart failure; J90 Pleural effusion, not elsewhere classified; I27.20 Pulmonary hypertension, unspecified; I42.9 Cardiomyopathy, unspecified; N39.0 Urinary tract infection, site not specified; F15.129 Other stimulant abuse with intoxication, unspecified; L03.116 Cellulitis of left lower limb; L03.115 Cellulitis of right lower limb; I73.9 Peripheral vascular disease, unspecified; Z20.822 Contact with and (suspected) exposure to COVID-19; F17.210 Nicotine dependence, cigarettes, uncomplicated; F41.0 Panic disorder [episodic paroxysmal anxiety]; Z79.82 Long term (current) use of aspirin
CPT/HCPCS: 36415; 71045; 71250; 76604; 76700; 80048; 80053; 80202; 80305; 81001; 83605; 83735; 83880; 84484; 85025; 87040; 87081; 87086; 93005; 93970; 94640; 96365; 96375; 99285; J0456; J0696; J1940; J2270; J2543; J3370; J3372; J3475; J7060; J7613; Q0092

== ENCOUNTER 2022-06-05 19:01 | Emergency (ER) | payer MEDICAID ==
[~2022-06-05] VITALS: Ht 172.7 cm; Wt 66.9 kg
[~2022-06-05 19:01] MED LIST changes: +ALBU0.0912 INH
[2022-06-05 19:21] VITALS: BP 124/84
--- NOTE | 2022-06-05 19:28 | NUR ---
PT TO BED 4 AMBULATORY
--- NOTE | 2022-06-05 19:46 | NUR ---
VOMITING BLOOD X2 DAYS. HAS SAID THIS IS A RECURRENT ISSUE EVEN BEING COMPLIANT WITH MEDICATION. N/V. DYSPNEA ON EXERTION.
[2022-06-05 20:08] LABS: BASOPHILS # (AUTO) 0.1 K/uL (0.00-0.22); BASOPHILS % (AUTO) 0.9 % (0.0-2.0); EOSINOPHILS # (AUTO) 0.1 K/uL (0-0.4); EOSINOPHILS % (AUTO) 1.5 % (0.0-4.0); HEMATOCRIT 42.5 % (36-48); HEMOGLOBIN 13.7 g/dL (12.0-16.0); LYMPHOCYTES # (AUTO) 1.2 K/uL (2.5-16.5); LYMPHOCYTES % (AUTO) 18.2 % (20.5-51.1); MEAN CORPUSCULAR HEMOGLOBIN 26 pg (27-31); MEAN CORPUSCULAR HGB CONC 32 g/dL (33-37); MEAN CORPUSCULAR VOLUME 81.5 fL (80-94); MONOCYTES # (AUTO) 0.8 K/uL (0.8-1.0); NEUTROPHILS # (AUTO) 4.4 K/uL (1.8-7.7); NEUTROPHILS % (AUTO) 67.4 % (42.2-75.2); PLATELET COUNT (AUTO) 208 K/uL (140-450); RED BLOOD CELL COUNT(AUTO) 5.22 MIL/uL (4.20-5.40); WHITE BLOOD COUNT (AUTO) 6.5 K/uL (4.8-10.8)
[2022-06-05 20:22] LABS: ANION GAP 14.5 (8-16); CARBON DIOXIDE 28.1 mmol/L (21-32); POTASSIUM 3.6 mmol/L (3.5-5.1)
--- NOTE | 2022-06-05 20:39 | NUR ---
LAB CALLED TO REPORT FOR ABNORMAL LAB. NOTIFIED
[2022-06-05] MEDS ORDERED: AMOX-1230 PO (20:55)
[2022-06-05] MEDS ORDERED: ROB PO (21:01)
[2022-06-05 21:26] VITALS: BP 124/84
--- NOTE | 2022-06-05 21:27 | NUR ---
Patient discharged with v/s stable. Written and verbal after care instructions given and explained. Patient verbalized understanding. Ambulatory with steady gait. All questions addressed prior to discharge. Advised to follow up with PMD. PT LEFT WITH HER BELONIGINGS
== END 2022-06-05 21:26 | disposition home or self-care (01) ==
LOC: MED 19:01
DX: R05.9 Cough, unspecified (principal); R04.2 Hemoptysis; Z79.899 Other long term (current) drug therapy
CPT/HCPCS: 36415; 71045; 80048; 84484; 85025; 93005; 99285; Q0092